=== PATIENT | male | born 1975 | race Two or more races ===

== ENCOUNTER 2025-05-22 08:14 | Day surgery (SDC) | payer OTHER ==
[2025-05-20 10:24] LABS: Hematocrit 44.5 % (41.0-53.0); Hemoglobin 15.1 g/dL (13.5-17.5); Mean Corpuscular Hemoglobin 30.4 pg (28.0-32.0); Mean Corpuscular Volume 89.6 fL (80.0-100.0); Nucleated Red Blood Cells % 0.0 %
[2025-05-20 10:34] LABS: Urine Protein, UAD TRACE (Negative)
[2025-05-20 10:40] LABS: INR 0.96 (0.9-1.15); Partial Thromboplastin Time 26.2 SEC (24.5-34.5); Prothrombin Time 10.2 sec (9.3-11.8)
[2025-05-20 10:48] LABS: Alanine Aminotransferase 19 U/L (7-40); Alkaline Phosphatase 48 U/L (46-116); BUN/Creatinine Ratio 8.3 (10.0-20.0); Calcium 9.6 mg/dL (8.7-10.4); Carbon Dioxide 28 mmol/L (20-31); Glucose 98 mg/dL (74-106); Potassium 4.1 mmol/L (3.5-5.1); Sodium 145 mmol/L (136-145); Total Protein 7.5 g/dL (5.7-8.2)
[2025-05-20 10:49] LABS: Albumin 4.5 g/dL (3.2-4.8)
[2025-05-20 10:50] LABS: Bilirubin, Total 0.9 mg/dL (0.2-1.0)
[2025-05-20 10:52] LABS: Blood Urea Nitrogen 8 mg/dL (9-23)
[2025-05-20 10:58] LABS: Anion Gap 11 (5-15); Chloride 106 mmol/L (98-107)
[~2025-05-22] VITALS: Ht 170.2 cm; Wt 89.8 kg
[~2025-05-22 08:14] MED LIST: GABA-1308 PO; IBU600T PO
[2025-05-22] MEDS ORDERED: ceFAZolin 2 GM/D5W50ml 50 ML IV ONE (09:10)
[2025-05-22] MEDS ORDERED: BUPIVACAINE 0.25% INJ 50ML VIAL ONE (09:53)
[2025-05-22] MEDS ORDERED: ceFAZolin 1GM VL ONE (10:01)
[2025-05-22] MEDS ORDERED: LIDOCAINE W/ EPINEPHRINE 1% 20ML VIAL ONE (10:01)
[2025-05-22] MEDS ORDERED: ROCURONIUM 10MG/ML 10ML VIAL IV ONE (10:12)
[2025-05-22] MEDS ORDERED: PROPOFOL 10 MG/ML 20 ML IV ONE (10:12)
[2025-05-22] MEDS ORDERED: MIDAZOLAM HCL 2MG/2ML 2ml VIAL (1mg/ml) ONE (10:14)
[2025-05-22] MEDS ORDERED: fentaNYL CITRATE 100 MCG/2 ML VL ONE (10:14)
[2025-05-22] MEDS ORDERED: HYDROmorphone HCL 2 MG/ML VL/or syr IV PRN (10:15)
[2025-05-22] MEDS ORDERED: METOCLOPRAMIDE HCL 5MG/ml INJ 2ml VIAL IV PRN (10:15)
[2025-05-22] MEDS ORDERED: ONDANSETRON HCL 4 MG/2 ML VIAL IV PRN (10:15)
[2025-05-22] MEDS ORDERED: ONDANSETRON HCL 4 MG/2 ML VIAL ONE (10:19)
[2025-05-22] MEDS ORDERED: METOCLOPRAMIDE HCL 5MG/ml INJ 2ml VIAL ONE (10:19)
[2025-05-22] MEDS: LIDOCAINE W/ EPINEPHRINE 1% 20ML VIAL ONE (10:31)
[2025-05-22] MEDS: BUPIVACAINE 0.5% P/F INJ 10 ML VIAL ONE (10:31)
[2025-05-22] MEDS ORDERED: SUGAMMADEX 200mg/2ml Vial (100MG/ML) IV ONE (10:49)
[2025-05-22] MEDS ORDERED: HYDROmorphone HCL 2 MG/ML VL/or syr ONE (11:00)
[2025-05-22] MEDS ORDERED: ACE3T PO (11:13)
[2025-05-22 11:17] VITALS: PULSE 61; RESP 15; TEMP 97.2; O2SAT 98
[2025-05-22] MEDS: ACETAMINOPHEN IV 1000 MG/100ML (10MG/ML) IV ONE (11:43)
--- NOTE | 2025-05-22 11:52 | DVHOP ---
DATE OF SURGERY: 05/22/2025 PREOPERATIVE DIAGNOSIS: Left inguinal hernia. POSTOPERATIVE DIAGNOSIS: Left (direct) inguinal hernia. SURGEON: Kevin Henning MD FUNERAL ASSISTANT: Jerry Rosa NP ANESTHESIA: General endotracheal, Fernie Gillis. PROCEDURE: Laparoscopic repair of left inguinal hernia. DESCRIPTION OF PROCEDURE: Under general endotracheal anesthesia with the patient's skin prepped and draped and infiltrated with 0.25% Marcaine and 0.5% Xylocaine mixture, the incision was made and deepened with electrocautery. Much scarring was encountered. Inflammatory reaction tissues were divided down onto the fibers of the external oblique aponeurosis ____ herniation which was reduced. The cord structures were encircled with a Wilman drain and retracted laterally. Ilioinguinal nerve was identified, retracted laterally, and protected. Following reduction of the direct herniation, the herniation continued to recur and was held back with a baby Cara retractor. However, due to the tendency of the herniation to return into its extra-abdominal position, a small plug of hernia prosthesis was then placed and secured with a suture. The floor of the hernia was repaired using nonabsorbable sutures through conjoint tendon and reflecting portion of Poupart's ligament. Wound was irrigated. Hemostasis was meticulously accomplished. Ilioinguinal nerve returned back into its normal anatomical position. Cord structures returned into their position and testicle replaced into its normal position. Closure accomplished utilizing Monocryl sutures, Dermabond glue, and Steri-Strips. The patient remained stable throughout the procedure and left the operating room following an accurate needle and sponge counts. His was thoroughly informed by phone. MD AKOSUA Gamboa/SUNITA/MODE TID: [id number] RECEIPT: [id number]
[2025-05-22 12:02] VITALS: BP 110/59; PULSE 53; RESP 16; O2SAT 98
== END 2025-05-22 12:15 | disposition home or self-care (01) ==
LOC: SUR 08:14
PROVIDERS: ATTEND Surgery
DX: K40.90 Unilateral inguinal hernia, without obstruction or gangrene, not specified as recurrent (principal); Z79.899 Other long term (current) drug therapy; Z98.890 Other specified postprocedural states
CPT/HCPCS: 36415; 49650; 80053; 81001; 85025; 85610; 85730; 86850; 86900; 86901; J0690; J1100; J1171; J2250; J2405; J2704; J2765; J3010; J3490; J0131